=== PATIENT | male | born 1955 | race Caucasian/White ===

== ENCOUNTER 2021-03-09 05:20 | Day surgery (SDC) | payer OTHER ==
[2021-03-08 15:47] VITALS: BMI 23.7
[2021-03-09 14:39] VITALS: BP 127/73; PULSE 71; TEMP 97
== END 2021-03-09 14:47 | disposition home or self-care (01) ==
LOC: JASU-SURG 05:20
PROVIDERS: ATTEND Surgery
PROC: 0GTG0ZZ Resection of Left Thyroid Gland Lobe, Open Approach (ICD-10-PCS; principal; 2021-03-09)
DX: E04.2 Nontoxic multinodular goiter (principal)
CPT/HCPCS: 88307-TC; 94760; J0131